=== PATIENT | male | born 1980 | race Caucasian/White ===

== ENCOUNTER 2019-10-20 05:08 | Emergency (ER) | payer MEDICAID ==
[~2019-10-20] VITALS: Ht 180.3 cm; Wt 86.4 kg
[2019-10-20 05:12] VITALS: Ht 180.3 cm; Wt 86.4 kg
--- NOTE | 2019-10-20 05:38 | NUR ---
PATIENT IN ER FOR BLISTERS ON HIS FEET. HE IS NOT SUICIDIAL. HE HAS OVERDOSED 7 YEARS AGO ON MULTIPLE PILLS. HE HAS A GOOD AFFECT, GOOD EYE CONTACT, HE IS SMILING, HE SAYS THAT HE IS NEVER DEPRESSED. 1800 NUMBER GIVEN FOR FUTURE REFERENCE.
[2019-10-20 07:08] VITALS: BP 132/84
== END 2019-10-20 07:08 | disposition home or self-care (01) ==
LOC: D.ER 05:08
DX: B35.3 Tinea pedis (principal); Z59.0 Homelessness